=== PATIENT | male | born 1975 | race Caucasian/White ===

== ENCOUNTER 2018-01-29 12:53 | Emergency (ER) | payer OTHER ==
--- NOTE | 2018-01-29 13:01 | EDPHY ---
H & P Stated Complaint: cp seen 1 week ago in [place] for same Time Seen by Provider: 01/29/18 13:01 - Personal History Current Tetanus/Diphtheria Vaccine: Unsure - Medical/Surgical History Hx Asthma: No Hx Chronic Respiratory Disease: No Hx Diabetes: No Hx Cardiac Disease: No Hx Renal Disease: No Hx Cirrhosis: No Hx Alcoholism: No Hx HIV/AIDS: No Hx Splenectomy or Spleen Trauma: No Other PMH: barretts esophagus - Social History Smoking Status: Never smoked Constitutional: Initial Vital Signs Temperature (C) 37 C 01/29/18 12:54 Heart Rate 82 01/29/18 12:54 Respiratory Rate 18 01/29/18 12:54 Blood Pressure 153/100 H 01/29/18 12:54 O2 Sat (%) 93 01/29/18 12:54 O2 Delivery Mode Room Air Allergies/Adverse Reactions: No Known Allergies Allergy (Unverified 01/29/18 12:53) Home Medications: Medication Instructions Recorded Atenolol 01/29/18 Claritin 01/29/18 Flonase Nasal [place] 01/29/18 Omeprazole 01/29/18 Medical Decision Making ED Course/Re-evaluation: CHIEF COMPLAINT: Left upper chest/arm discomfort. HISTORY OF PRESENT ILLNESS: This patient is a 49 y/o male arriving with his complaining of left upper chest pain and left arm discomfort. He is visiting [place] from [place] and arrived [place] evening, two days ago. One week ago, he went to ED in [place] for similar symptoms after waking with sharp left shoulder pain, left arm numbness, and racing heart. Evaluation there was negative but he has not yet followed up with cardiology. Yesterday, he had intermittent left arm numbness and some mild jaw pain. He woke this morning at 2am with another episode of "twinging" pain in his upper left chest. These episodes last about 30 minutes. Today, his arm numbness remains with associated mild paresthesias extending to his hand, specifically in his ring and pinky finger more than the others. Additionally, he has experienced some nausea after eating. He has attempted to stay well hydrated. He denies any pain at the base of his neck. No shortness of breath, chest pressure, vomiting, or other associated symptoms. No known history of hypertension, diabetes, hyperlipidemia. He is a nonsmoker. REVIEW OF SYSTEMS: A 10 point review of systems was performed and is negative with the exception of the elements mentioned in the history of present illness. PHYSICAL EXAM: HR, BP, O2 Sat, RR. Temp noted General Appearance: Alert, well hydrated, appropriate, and non-toxic appearing. Head: Atraumatic without scalp tenderness or obvious injury Eyes: Pupils equal, round, reactive to light and accommodation, EOMI, no trauma , no injection. Ears: Clear bilaterally, no perforation, normal landmarks Nose: Atraumatic, no rhinorrhea, clear. Throat: There is no erythema or exudates, no lesions, normal tonsils, mucus membranes moist. Neck: Supple, 2+ carotid upstroke, nontender, no lymphadenopathy. Respiratory: No retractions, no distress, no wheezes, and no accessory muscle use. Lungs are clear to auscultation bilaterally. Cardiovascular: Regular rate and rhythm, no murmurs, rubs, or gallops. Bilateral carotid, radial, dorsalis pedis, and posterior tibial pulses intact. Good capillary refill all extremities. Gastrointestinal: Abdomen is soft, nontender, non-distended, no masses, no rebound, no guarding, no peritoneal signs. Musculoskeletal: Normal active ROM of all extremities, atraumatic. Neurological: Alert, appropriate, and interactive. The patient has normal DTRs and non-focal cranial nerves, motor, sensory, and cerebellar exam. Skin: No rashes, good turgor, no nodules on palpation. Past medical history: Contreras's esophagus. Past surgical history: Noncontributory. Family history: Noncontributory. Social history: Visiting from [place]. . Does not abuse alcohol. Nonsmoker. DIAGNOSTICS/PROCEDURES/CRITICAL CARE TIME: The 12 lead EKG was interpreted by myself. See hard copy and/or "tracemaster" electronic copy for interpretation. Sinus rhythm rate 80. DIFFERENTIAL DIAGNOSIS: The differential diagnosis for the patient's chest pain included but was not limited to musculoskeletal pain, myocardial ischemia, pulmonary embolus, chest wall pain, pleural inflammation, and pulmonary infectious causes. MEDICAL DECISION [id number] y/o male presents with left anterior shoulder pain with associated paresthesias radiating down his left arm in an ulnar nerve distribution. Plan for repeat cardiac evaluation including EKG, labs including CBC, chemistries, troponin, d-dimer. EKG shows sinus rhythm, no evidence for ischemia at this time. 14:00 Troponin and d-dimer negative. I have low suspicion for cardiac etiology at this time. Patient has no increased symptoms with exertion or altitude. Serial workup here and in [place] has been negative. Additionally, the patient's ulnar nerve distribution of symptoms is more consistent with an orthopedic concern than cardiac. 14:05 Reassessed patient. Results discussed with him ans his . Plan to discharge home in good condition. He will follow up with cardiology and orthopedics when he returns home to [place]. Return precautions discussed. He is comfortable with this plan. - Data Points Laboratory Results: Laboratory Results 01/29/18 13:05 01/29/18 13:05 01/29/18 01/29/18 01/29/18 13:05 13:05 13:05 WBC 9.58 10^3/uL H 10^3/uL (3.80-9.50) RBC 5.28 10^6/uL 10^6/uL (4.40-6.38) Hgb 15.7 g/dL g/dL (13.7-17.5) Hct 45.7 % % (40.0-51.0) MCV 86.6 fL fL (81.5-99.8) MCH 29.7 pg pg (27.9-34.1) MCHC 34.4 g/dL g/dL (32.4-36.7) RDW 13.2 % % (11.5-15.2) Plt Count 312 10^3/uL 10^3/uL (150-400) MPV 9.1 fL fL (8.7-11.7) Neut % (Auto) 71.4 % % (39.3-74.2) Lymph % (Auto) 17.4 % % (15.0-45.0) [place]man % (Auto) 6.6 % % (4.5-13.0) Eos % (Auto) 3.7 % % (0.6-7.6) Baso % (Auto) 0.6 % % (0.3-1.7) Nucleat RBC Rel Count 0.0 % % (0.0-0.2) Absolute Neuts (auto) 6.84 10^3/uL H 10^3/uL (1.70-6.50) Absolute Lymphs (auto) 1.67 10^3/uL 10^3/uL (1.00-3.00) Absolute Monos (auto) 0.63 10^3/uL 10^3/uL (0.30-0.80) Absolute Eos (auto) 0.35 10^3/uL 10^3/uL (0.03-0.40) Absolute Basos (auto) 0.06 10^3/uL 10^3/uL (0.02-0.10) Absolute Nucleated RBC 0.00 10^3/uL 10^3/uL (0-0.01) Immature Gran % 0.3 % % (0.0-1.1) Immature Gran # 0.03 10^3/uL 10^3/uL (0.00-0.10) D-Dimer < 0.27 ug/mLFEU ug/mLFEU (0.00-0.50) Sodium 143 mEq/L mEq/L (135-145) Potassium 4.1 mEq/L mEq/L (3.5-5.2) Chloride 104 mEq/L mEq/L (97-110) Carbon Dioxide 25 mEq/l mEq/l (22-31) Anion Gap 14 mEq/L mEq/L (8-16) BUN 17 mg/dL mg/dL (7-23) Creatinine 0.9 mg/dL mg/dL (0.7-1.3) Estimated GFR > 60 Glucose 99 mg/dL mg/dL (70-100) Calcium 9.7 mg/dL mg/dL (8.5-10.4) Troponin I < 0.012 ng/mL ng/mL (0.000-0.034) Departure - Departure Disposition: Home, Routine, Self-Care Clinical Impression: Left anterior shoulder pain Condition: Good Instructions: Shoulder Pain (ED) Additional Instructions: 1. Follow up with cardiology as scheduled when you return home. You may wish to follow up with an creative specialist as well should your symptoms continue. 2. Return to the Emergency Department for fever, chest pain, shortness of breath , increasing pain or other worsening of condition. Referrals: ZACH LAWLER [Other] - As per Instructions Report Scribed for: Oumar Almendarez Report Scribed by: Obdulia Maynard Date of Report: 01/29/18 Time of Report: 13:31
--- NOTE | 2018-01-29 13:24 | CPEKG ---
Heart Rate: 80 RR Interval: 750 P-R Interval: 180 QRSD Interval: 92 QT Interval: 368 QTC Interval: 425 P [place]: 45 QRS [place]: 14 T Wave [place]: 56 EKG Severity - NORMAL ECG - EKG Impression: SINUS RHYTHM Electronically Signed By: Mary Rubalcava 29-Jan-2018 22:49:43
[2018-01-29 13:27] LABS: PLATELET COUNT 312 10^3/uL (150-400)
[2018-01-29 14:09] VITALS: BP 144/80
== END 2018-01-29 14:09 | disposition home or self-care (01) ==
DX: M25.512 Pain in left shoulder (principal)